=== PATIENT | male | born 1975 | race Caucasian/White ===

== ENCOUNTER 2019-11-18 08:32 | Emergency (ER) | payer OTHER ==
[~2019-11-18] VITALS: Ht 175.3 cm; Wt 68.0 kg
[2019-11-18] MEDS ORDERED: NS 1,000 ML IV ONE (09:15)
[2019-11-18 09:34] LABS: BASO # 0.1 10^3/uL (0.0-0.2); EOS # 0.1 10^3/uL (0.0-0.5); EOS % 1.7 % (0.0-3.0); HEMATOCRIT 45.7 % (42.0-52.0); HEMOGLOBIN 14.4 g/dl (13.5-17.5); LYMPH # 2.1 10^3/uL (1.5-5.0); LYMPH % 29.3 % (24.0-44.0); MEAN CORPUSCULAR HEMOGLOBIN 27.1 pg (27.0-33.0); MEAN CORPUSCULAR HGB CONC 31.5 g/dl (32.0-36.5); MEAN CORPUSCULAR VOLUME 86.1 fl (80.0-96.0); MONO # 0.6 10^3/uL (0.0-0.8); NEUTROPHILS # 4.2 10^3/uL (1.5-8.5); NEUTROPHILS % 59.7 % (36.0-66.0); PLATELET COUNT, AUTOMATED 333 10^3/uL (150-450); RED BLOOD COUNT 5.31 10^6/uL (4.30-6.10)
[2019-11-18 09:58] LABS: ALT/SGPT 18 U/L (12-78); BILIRUBIN,DIRECT 0.1 MG/DL (0.0-0.2); BILIRUBIN,TOTAL 0.4 MG/DL (0.2-1.0); BLOOD UREA NITROGEN 9 MG/DL (7-18); CALCIUM LEVEL 9.1 MG/DL (8.5-10.1); CARBON DIOXIDE LEVEL 30 MEQ/L (21-32); CHLORIDE LEVEL 106 MEQ/L (98-107); CREATININE FOR GFR 0.88 MG/DL (0.70-1.30); GLOMERULAR FILTRATION RATE > 60.0 (>60); GLUCOSE, FASTING 83 MG/DL (70-100); LIPASE 191 U/L (73-393); POTASSIUM SERUM 4.4 MEQ/L (3.5-5.1); SODIUM LEVEL 140 MEQ/L (136-145); TOTAL PROTEIN 6.9 GM/DL (6.4-8.2)
[2019-11-18] MEDS ORDERED: ISOVUE-370 76% 100ML VIAL (Q9967) As Ordered ONE (10:06)
--- NOTE | 2019-11-18 10:30 | REP ---
Clinical: Right lower quadrant pain. Technique: Axial contrast enhanced images from the lung bases to the pubic symphysis using 100 ml Isovue 370 intravenous contrast material with coronal and sagittal re-formations. Findings: Lung bases are clear. Visualized heart and pericardium normal. Liver, spleen, pancreas, gallbladder, bilateral adrenal glands and kidneys are normal. There is no evidence for bowel obstruction or acute inflammatory process. Normal terminal ileum and cecum identified in the right lower quadrant. The appendix is not visualized but no secondary findings to suggest acute appendicitis are appreciated. Pelvis demonstrates normal bladder and evidence for prior hysterectomy. No ascites. No free air. No adenopathy. Abdominal aorta and vasculature appears normal. Musculoskeletal structures are intact. Impression: Normal contrast enhanced CT of the abdomen and pelvis. No acute abdominopelvic pathology appreciated. Electronically Signed by Sorin Naranjo MD 11/18/2019 10:22 A
[2019-11-18 13:26] VITALS: BP 130/79
--- NOTE | 2019-11-18 13:30 | REP ---
Clinical: Right groin pain. Technique: Real time law scale and color evaluation using linear high frequency transducer. Findings: Ultrasound examination of the right groin demonstrates no hernia, fluid collection or mass lesion. Impression: No evidence for right inguinal hernia. Electronically Signed by Sorin Naranjo MD 11/18/2019 01:21 P
--- NOTE | 2019-11-18 13:32 | REP ---
Clinical: Testicular pain. Technique: Crooks scale and color Doppler evaluation using linear and curved array transducer with color Doppler evaluation. Findings: The testicles demonstrate a few scattered bilateral microcalcifications. There is no evidence for acute infectious/inflammatory process, torsion, or mass lesion. Incidental 4 mm left epididymal head cyst identified. No hydrocele. No varicocele. Right testicle measures 4.4 x 2.2 x 3.3 cm. Left testicle measures 5.0 x 2.4 x 3.1 cm. Impression: Few scattered testicular microcalcifications. Incidental 4 mm left epididymal head cyst. Otherwise normal scrotal ultrasound. Electronically Signed by Sorin Naranjo MD 11/18/2019 01:24 P
--- NOTE | 2019-11-18 14:38 | ER ---
DATE OF CONSULTATION: 11/18/2019 REASON FOR CONSULTATION: Right lower quadrant abdominal discomfort. HISTORY OF PRESENT ILLNESS: The patient is a pleasant 44-year-old man who presented to the emergency department complaining of several weeks of right lower quadrant discomfort. He reports no recollection of any injury that would account for the discomfort. He had a right inguinal hernia repair approximately 6 years ago in [place] apparently done laparoscopically. He also had bilateral inguinal hernias performed as an infant. He has had discomfort in the right groin area that he says is very similar to his hernia pains. This waxes and wanes. He has had some variability in his bowel habits with some diarrhea at times and otherwise he will sometimes go several days between bowel movements. He has not had any fevers or chills. He denies any nausea or vomiting. In the emergency department he was evaluated with some lab work, a CT scan of the abdomen and pelvis and also scrotal and pelvic ultrasounds. Apparently, nothing was found and I was asked to come see him to evaluate his pain. MEDICATIONS: None. ALLERGIES: None. MEDICAL HISTORY: He apparently had some form of tachycardia which was treated with a cardiac ablation 15 years or so ago. He reports no problems since then. He reports no active medical issues, otherwise. FAMILY HISTORY: Shows no history of significant inheritable conditions. So the patient recently moved back to [place] from elsewhere. He is not currently employed. REVIEW OF SYSTEMS: Review of systems reveals no history of headaches, seizures or stroke. He denies chest pain or palpitations. He has had no cough, wheezing or sputum production. He denies any dysuria or hematuria. He has no history of renal stones. He does report one episode of feeling a need to void without being able to within the last few weeks but that resolved without any need for treatment and he denies any symptoms now. He has no bone or joint issues. He has no history of deep venous thrombosis (DVT) or pulmonary embolus. PHYSICAL EXAMINATION: Physical exam reveals a pleasant man sitting up on the stretcher looking very comfortable. He moves from sitting to lying and back without any obvious discomfort. His most recent vital signs show temperature of 99.4, pulse 49 and blood pressure of 130/79 with a normal respiratory rate and O2 saturation. Skin is warm and dry. Skin turgor is good. Sclerae are anicteric. Mucous membranes are moist. Neck is supple without mass or bruit. Heart exam shows a regular rate and rhythm. He is probably mildly bradycardiac. The lungs are clear to auscultation bilaterally. Abdomen is thin and flat. He has a small scar going across just above his umbilicus. There may be another small scar along the midline between the umbilicus in the pubis. He also has bilateral inguinal scars. He has active bowel sounds. The abdomen is nondistended. There is no tenderness to percussion and no tympany to percussion. Palpation reveals the abdomen to be soft throughout. He has little mild direct tenderness on palpation in the right lower quadrant just inside the anterior superior iliac spine. There is no inguinal adenopathy palpable. He has strong bilateral femoral pulses. No masses appreciated. Extremities show no peripheral edema. He has palpable posterior tibial pulses bilaterally. Laboratory studies include a CBC with a differential which revealed a white count of 7, hemoglobin of 14, hematocrit of 46 and platelet count of 333,000. Differential showed 60% neutrophils, 29% lymphocytes, 8% monocytes. Chemistry profile was entirely normal including liver function tests and lipase. A urinalysis was not suggestive of infection. He had a CT scan of the abdomen and pelvis which revealed no inflammatory changes identified within the abdomen or pelvis. The appendix was not visualized. Terminal ileum and cecum were reported as normal. He also underwent a scrotal ultrasound which was reported as showing an incidental 4 mm epididymal head cyst on the left and was otherwise normal. A pelvic ultrasound showed no evidence for a right inguinal hernia. IMPRESSION: Right lower quadrant abdominal pain of unclear etiology. He does admit on further questioning that he may have been doing some lifting of some heavy boxes recently. I suspect that his discomfort is musculoskeletal in etiology. RECOMMENDATIONS: At this point I would recommend sending him home. [id number] medications could be utilized as necessary for discomfort. It would be reasonable to recommend a period of limited activity as far as strenuous lifting goes. He could certainly followup as needed if his pain worsened. The patient seems reassured that there is no sign of hernia or other significant internal problem. LISA
--- NOTE | 2019-11-21 17:05 | ED PDOC ---
Post-Departure Follow-Up [facility] faxed formal report of scrotal us for fu Belkis Ahmadi MD Nov 21, 2019 17:05
== END 2019-11-18 14:40 | disposition home or self-care (01) ==
LOC: M ED 08:32
DX: R10.9 Unspecified abdominal pain (principal); N50.89 Other specified disorders of the male genital organs
CPT/HCPCS: 74177; 76857; 76870; 80048; 80076; 81001; 83690; 85025; 93976; 96360; 99284; Q9967